=== PATIENT | male | born 1955 | race Two or more races ===

== ENCOUNTER 2020-03-12 21:16 | Emergency (ER) | payer MEDICARE, MEDICAID ==
[~2020-03-12] VITALS: Ht 160 cm; Wt 71.7 kg
--- NOTE | 2020-03-12 21:22 | NUR ---
Note trjosue in EDM - 03/12/20 at 2144 by ISACC TO ER BED 1 BIB [id number] FROM HOME FOR C/O FEVER AND SOB, O2 SAT 92% ON RA. PT TESTED + FOR COVID 10 DAYS AGO & WAS ADMITTED AT [facility]. PT AAOX4. PLACE PT ON CARDIAC MONITORING, CONTINUOUS POX, O2 @ 2L/NC. PEND ING ER MD BYRD.
--- NOTE | 2020-03-12 21:32 | NUR ---
VERITO FROM HOME FOR C/O FEVER. PT A, OX4, J[place]ESE SPEAKING ONLY. PER EMS PT WAS TESTED + FOR COVID 10 DAYS AGO AND WAS HOSPITALIZED AT [facility] FOR COVID PNA. CURRENTLY ON PRN O2 AT HOME. PT WAS TRANSFERRED TO BED 1 IN ER AND WAS PLACED ON A MONITOR, SATTING 92% ON R/A. NO SOB. 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 CURRENT TEMP: 99.5 ORAL. WILL CONT TO MONITOR.
[2020-03-12 21:56] LABS: BASOPHILS # (AUTO) 0.1 /CMM (0.0-0.2); BASOPHILS % (AUTO) 0.8 % (0.0-2.0); EOSINOPHILS % (AUTO) 0.1 % (0.0-6.0); HEMATOCRIT 34 % (39-51); HEMOGLOBIN 11.2 g/dL (13.5-17.5); LYMPHOCYTES # (AUTO) 1.7 /CMM (0.8-4.8); LYMPHOCYTES % (AUTO) 21.5 % (20.0-44.0); MEAN CORPUSCULAR HGB CONC 33 g/dl (31.0-36.0); MEAN CORPUSCULAR VOLUME 83 fL (80-96); MONOCYTES # (AUTO) 1.1 /CMM (0.1-1.30); MONOCYTES % (AUTO) 13.8 % (2.0-12.0); NEUTROPHILS % (AUTO) 63.8 % (43.0-81.0); PLATELET COUNT (AUTO) 170 /CMM (150-450); RED BLOOD CELL COUNT(AUTO) 4.12 MIL/uL (4.5-6.0); WHITE BLOOD COUNT (AUTO) 7.8 K/uL (4.3-11.0)
--- NOTE | 2020-03-12 21:56 | NUR ---
COVID SWAB COLLECTED AND SENT TO LAB.
[2020-03-12 22:00] LABS: ABG BASE EXCESS -0.3 mmol/L; ABG OXYGEN SATURATION 95.9 % (92.0-98.5); ABG PCO2 35.4 mmHg (35.0-45.0); ABG PO2 83.8 mmHg (75.0-100.0); AaDO2 88.5 mmHg; COHb 0.1 % (0.5-1.5); MetHb 0.5 % (0.0-1.5); O2Hb 95.3 % (94.0-97.0); SITE, ABG Right Radial
[2020-03-12] MEDS ORDERED: ACETAMINOPHEN ES 500 MG TABLET PO ONE (22:00)
[2020-03-12 22:10] LABS: BILIRUBIN,URINE NEGATIVE (NEGATIVE); COLOR,URINE YELLOW (YELLOW); LEUKOCYTE ESTERASE ,URINE NEGATIVE (NEGATIVE); NITRITE, URINE NEGATIVE (NEGATIVE); PROTEIN,URINE NEGATIVE (NEGATIVE); UGLUCOSE NEGATIVE (NEGATIVE); UROBILINOGEN,URINE 0.2 EU/dL (0.2)
[2020-03-12 22:24] LABS: D-DIMER 0.93 mg/L(FEU (0.17-0.50)
[2020-03-12 23:13] LABS: CALCIUM, SERUM 9.1 mg/dL (8.5-10.1); CARBON DIOXIDE 28 mmol/L (21-32); CHLORIDE 104 mmol/L (98-107); CREATININE 0.9 mg/dL (0.6-1.3); GLUCOSE 111 mg/dL (74-106); POTASSIUM 4.7 mmol/L (3.5-5.1); SODIUM SERUM 138 mmol/L (136-145); UREA NITROGEN, BLOOD 13 mg/dL (7-18)
[2020-03-12 23:25] LABS: ALANINE AMINOTRANSFERASE 33 U/L (12-78); ALBUMIN 2.6 g/dL (3.4-5.0); ALKALINE PHOSPHATASE 80 U/L (46-116); ASPARTATE AMINOTRANSFERASE 20 U/L (15-37); B-TYPE NATRIURETIC PEPTIDE 626 PG/ML (0-125); BILIRUBIN,TOTAL 0.2 mg/dL (0.2-1.0); TOTAL PROTEIN, SERUM 7.2 g/dL (6.4-8.2)
[2020-03-13 00:09] LABS: CREATINE KINASE, TOTAL 25 U/L (39-308); FERRITIN 681 ng/mL (8-388)
--- NOTE | 2020-03-13 02:00 | NUR ---
Patient discharged to home in stable condition. Written and verbal after care instructions given. Patient verbalizes understanding of instruction.IV removed. Catheter intact and site benign. Pressure and 4x4 applied to site. No bleeding noted.
[2020-03-13 02:09] VITALS: BP 123/73
== END 2020-03-13 02:09 | disposition home or self-care (01) ==
LOC: ER 21:18
DX: U07.1 COVID-19 (principal); J12.82 Pneumonia due to coronavirus disease 2019; R79.1 Abnormal coagulation profile; D64.9 Anemia, unspecified; R79.82 Elevated C-reactive protein (CRP); R94.31 Abnormal electrocardiogram [ECG] [EKG]; I11.9 Hypertensive heart disease without heart failure; E11.9 Type 2 diabetes mellitus without complications; R50.9 Fever, unspecified
CPT/HCPCS: 36415; 36600; 71045-TC; 80053-TC; 82550-TC; 82728-TC; 82803-TC; 83605-TC; 83615-TC; 83880; 84484-TC; 85025-TC; 85378-TC; 85385-TC; 85730-TC; 86140-TC; 87040-TC; 87081-TC; 87086-TC; C9803; U0003